=== PATIENT | male | born 1955 | race Caucasian/White ===

== ENCOUNTER 2021-02-20 11:41 | Inpatient (IN) ==
[2021-02-20] MEDS ORDERED: 0.9 % Sodium Chloride 1,000 ML IVC ONE (11:59)
[2021-02-20] MEDS ORDERED: *HR* HYDROmorphone (PF) 1 MG/ML SYRINGE IVP ONE (11:59)
[2021-02-20] MEDS ORDERED: Ondansetron 4 MG/2 ML VIAL IVP ONE (11:59)
[2021-02-20 12:11] LABS: Basophils % 0.2 %; Eosinophils # 0.1 K/mcL (0.0-0.6); Eosinophils % 0.6 %; Hematocrit 39.6 % (37.5-50.1); Hemoglobin 13.5 g/dL (12.9-16.9); Immature Granulocytes % 0.5 % (0-4); Lymphocytes # 2.2 K/mcL (0.6-4.6); Lymphocytes % 14.6 %; Mean Corpuscular HGB Conc 34.1 g/dL (31.6-35.5); Mean Corpuscular Hemoglobin 30.1 pg (28.0-33.3); Mean Corpuscular Volume 88.4 fL (83.0-100.0); Mean Platelet Volume 10.2 fL (9.4-12.4); Monocytes # 1.2 K/mcL (0.0-1.3); Monocytes % 7.7 %; Neutrophils # 11.5 K/mcL (1.6-8.9); Platelet Count 241 K/mcL (140-400); Red Blood Count 4.48 M/mcL (4.19-5.50); Red Cell Distribution Width 13.4 % (11.5-14.5); Segmented Neutrophils % 76.4 %
[2021-02-20 12:32] LABS: Alanine Aminotransferase 34 Units/L (7-52); Albumin 3.9 g/dL (3.5-5.7); Albumin/Globulin Ratio 1.2 (1.1-2.2); Alkaline Phosphatase 59 Units/L (34-104); Aspartate Amino Transferase 34 Units/L (13-39); BUN/Creatinine Ratio 11 (6-26); Bilirubin,Direct 0.3 mg/dL (0.0-0.2); Bilirubin,Indirect 1.3 mg/dL (0.0-1.0); Bilirubin,Total 1.6 mg/dL (0.3-1.0); Blood Urea Nitrogen 11 mg/dL (8-23); Calcium 9.3 mg/dL (8.6-10.3); Carbon Dioxide 29 mEq/L (23-29); Chloride 96 mEq/L (98-107); Globulin 3.2 g/dL (2.4-3.5); Glucose 134 mg/dL (70-105); Lipase 23 Units/L (11-82); Osmolality,Calculated 281 (280-300); Potassium 3.2 mEq/L (3.5-5.1); Sodium 135 mEq/L (136-145); Total Protein 7.1 g/dL (6.4-8.9); Troponin I < 0.03 ng/mL (< 0.04); eGFR For African Americans > 60 (> 60); eGFR For Non-African Americans > 60 (> 60)
[2021-02-20] MEDS ORDERED: Piperacillin/Tazobactam 3.375 GM in 0.9 % Sodium Chloride Mini Bag 100 ML IVPB ONE (13:44)
[2021-02-20] MEDS ORDERED: Lidocaine -MPF 4% 5 ML AMPUL ONE (14:59)
[2021-02-20] MEDS ORDERED: *HR* Magnesium Sulfate 1 GM/2 ML VIAL ONE (15:03)
[2021-02-20] MEDS ORDERED: Ondansetron 4 MG/2 ML VIAL ONE (15:03)
[2021-02-20] MEDS ORDERED: Lidocaine -MPF 2% 2 ML VIAL ONE (15:03)
[2021-02-20] MEDS ORDERED: *HR* Rocuronium Bromide 50 MG/5 ML VIAL ONE (15:03)
[2021-02-20] MEDS ORDERED: Acetaminophen 325 MG TABLET PO PRN (15:06)
[2021-02-20] MEDS ORDERED: Melatonin 3 MG TABLET PO PRN ×2 (15:06→19:12)
[2021-02-20] MEDS ORDERED: Naloxone 0.4 MG/ML INJ IVP PRN ×4 (15:06→19:12)
[2021-02-20] MEDS ORDERED: *HR* HYDROMORPHONE 2 MG/ML VIAL ONE (15:11)
[2021-02-20] MEDS ORDERED: *HR* FentaNYL (PF) 100 MCG/2 ML VIAL ONE (15:11)
[2021-02-20] MEDS ORDERED: Acetaminophen IV 1,000 MG/100 ML BAG IVPB ONE (15:27)
[2021-02-20] MEDS ORDERED: Albuterol 2.5 MG/3 ML NEBULIZER IH PRN ×4 (15:40→19:12)
[2021-02-20] MEDS ORDERED: *HR* HYDROcodone/Acet 5/325 mg TABLET PO PRN (15:41)
[2021-02-20] MEDS ORDERED: Ketorolac 15 MG/ML VIAL IVP PRN (15:41)
[2021-02-20] MEDS ORDERED: 0.9 % Sodium Chloride w KCl 20 MEQ/1,000 ML MLS IVC SCH (15:45)
[2021-02-20] MEDS ORDERED: Ondansetron 4 MG/2 ML VIAL IVP PRN ×2 (15:58→19:12)
[2021-02-20] MEDS ORDERED: *HR* FentaNYL (PF) 100 MCG/2 ML VIAL IVP PRN ×2 (15:58→19:12)
[2021-02-20] MEDS ORDERED: *HR* HYDROmorphone (PF) 1 MG/ML SYRINGE IVP PRN ×2 (15:58→19:12)
[2021-02-20] MEDS ORDERED: Nitroglycerin 0.4 MG TAB.SUBL SL PRN ×2 (15:58→19:12)
[2021-02-20] MEDS ORDERED: EPHEDrine 50 MG/ML VIAL ONE (16:35)
[2021-02-20] MEDS ORDERED: Ketorolac 30 MG/ML VIAL ONE (16:59)
[2021-02-20] MEDS: 0.9 % Sodium Chloride w KCl 20 MEQ/1,000 ML MLS IVC SCH (21:21)
[2021-02-20] MEDS: Ketorolac 15 MG/ML VIAL IVP PRN (22:10)
[2021-02-20] MEDS: Ampicillin/Sulbactam 3,000 MG in 0.9 % Sodium Chloride Mini Bag 100 ML IVPB SCH (23:43)
[2021-02-21] MEDS ORDERED: Ampicillin/Sulbactam 3,000 MG in 0.9 % Sodium Chloride Mini Bag 100 ML IVPB SCH
[2021-02-21 02:00] LABS: Basophils % 0.2 %; Hematocrit 42.3 % (37.5-50.1); Hemoglobin 13.7 g/dL (12.9-16.9); Immature Granulocytes % 0.5 % (0-4); Lymphocytes # 0.7 K/mcL (0.6-4.6); Lymphocytes % 4.1 %; Mean Corpuscular HGB Conc 32.4 g/dL (31.6-35.5); Mean Corpuscular Volume 89.6 fL (83.0-100.0); Mean Platelet Volume 10.5 fL (9.4-12.4); Monocytes % 6.3 %; Neutrophils # 14.3 K/mcL (1.6-8.9); Platelet Count 225 K/mcL (140-400); Red Blood Count 4.72 M/mcL (4.19-5.50); Red Cell Distribution Width 13.3 % (11.5-14.5); Segmented Neutrophils % 88.9 %; White Blood Count 16.1 K/mcL (4.3-11.1)
[2021-02-21 02:20] LABS: BUN/Creatinine Ratio 13 (6-26); Blood Urea Nitrogen 17 mg/dL (8-23); Calcium 8.7 mg/dL (8.6-10.3); Carbon Dioxide 25 mEq/L (23-29); Chloride 97 mEq/L (98-107); Glucose 214 mg/dL (70-105); Osmolality,Calculated 282 (280-300); Potassium 3.6 mEq/L (3.5-5.1); Sodium 132 mEq/L (136-145); eGFR For African Americans > 60 (> 60); eGFR For Non-African Americans 53 (> 60)
[2021-02-21] MEDS: Ampicillin/Sulbactam 3,000 MG in 0.9 % Sodium Chloride Mini Bag 100 ML IVPB SCH ×4 (05:07→23:57)
[2021-02-21] MEDS: *HR* Heparin 5,000 UNIT/ML VIAL SQ SCH ×3 (05:09→22:08)
[2021-02-21 05:22] LABS: Bacteria,Urine Few per hpf (None-Few); Bilirubin,Urine Negative (Negative); Blood,Urine Negative (Negative); Clarity,Urine Clear (Clear); Color,Urine Light-Orange (Yellow); Glucose,Urine (UA) Normal (Normal); Ketones,Urine Negative (Negative); Leukocyte Esterase,Urine Negative (Negative); Mucus,Urine Few per lpf (None-Few); Nitrite,Urine Negative (Negative); Protein,Urine 30 mg/dL (Neg-Trace); RBC,Urine 0-3 per hpf (0-3); Specific Gravity,Urine 1.028 (1.010-1.025); Urobilinogen,Urine Normal (Normal); WBC,Urine 0-3 per hpf (0-3)
[2021-02-21] MEDS ORDERED: *HR* Heparin 5,000 UNIT/ML VIAL SQ SCH (06:00)
[2021-02-21] MEDS: *HR* HYDROcodone/Acet 5/325 mg TABLET PO PRN (09:58)
[2021-02-21] MEDS: 0.9 % Sodium Chloride w KCl 20 MEQ/1,000 ML MLS IVC SCH (09:58)
[2021-02-21] MEDS: Budesonide/Formoterol 160/4.5 1 PUFF INH IH SCH (20:07)
[2021-02-21] MEDS: Metoprolol XL (24 HR) Succ 25 MG TAB.ER.24H PO SCH (22:08)
[2021-02-21] MEDS: Acetaminophen 325 MG TABLET PO PRN (22:27)
[2021-02-22 01:27] LABS: Basophils % 0.1 %; Eosinophils % 0.1 %; Hematocrit 37.4 % (37.5-50.1); Immature Granulocytes % 0.6 % (0-4); Lymphocytes # 1.2 K/mcL (0.6-4.6); Lymphocytes % 8.9 %; Mean Corpuscular HGB Conc 32.4 g/dL (31.6-35.5); Mean Corpuscular Hemoglobin 29.4 pg (28.0-33.3); Mean Corpuscular Volume 90.8 fL (83.0-100.0); Mean Platelet Volume 10.8 fL (9.4-12.4); Monocytes # 1.3 K/mcL (0.0-1.3); Monocytes % 9.2 %; Neutrophils # 11.2 K/mcL (1.6-8.9); Platelet Count 280 K/mcL (140-400); Red Blood Count 4.12 M/mcL (4.19-5.50); Red Cell Distribution Width 13.5 % (11.5-14.5); Segmented Neutrophils % 81.1 %; White Blood Count 13.9 K/mcL (4.3-11.1)
[2021-02-22 01:28] LABS: Hemoglobin 12.1 g/dL (12.9-16.9)
[2021-02-22 01:46] LABS: BUN/Creatinine Ratio 20 (6-26); Blood Urea Nitrogen 20 mg/dL (8-23); Calcium 8.4 mg/dL (8.6-10.3); Carbon Dioxide 25 mEq/L (23-29); Chloride 98 mEq/L (98-107); Glucose 181 mg/dL (70-105); Osmolality,Calculated 281 (280-300); Potassium 3.4 mEq/L (3.5-5.1); Sodium 132 mEq/L (136-145); eGFR For African Americans > 60 (> 60); eGFR For Non-African Americans > 60 (> 60)
[2021-02-22] MEDS: Ampicillin/Sulbactam 3,000 MG in 0.9 % Sodium Chloride Mini Bag 100 ML IVPB SCH ×4 (06:31→23:30)
[2021-02-22] MEDS: *HR* Heparin 5,000 UNIT/ML VIAL SQ SCH ×3 (06:31→18:17)
[2021-02-22] MEDS: Budesonide/Formoterol 160/4.5 1 PUFF INH IH SCH ×2 (07:37→23:10)
[2021-02-22] MEDS: Aspirin Enteric Coated 81 MG Tablet PO SCH (10:05)
[2021-02-22] MEDS: Metoprolol XL (24 HR) Succ 25 MG TAB.ER.24H PO SCH ×2 (10:05→20:23)
[2021-02-22] MEDS: Ketorolac 15 MG/ML VIAL IVP PRN (10:10)
[2021-02-22] MEDS ORDERED: Ipratropium/Albuterol Neb 3 ML IH PRN (16:37)
[2021-02-22] MEDS: Baclofen 10 MG TABLET PO PRN (18:17)
[2021-02-22] MEDS: *HR* HYDROcodone/Acet 5/325 mg TABLET PO PRN (20:28)
[2021-02-23 02:19] LABS: Basophils % 0.3 %; Eosinophils # 0.3 K/mcL (0.0-0.6); Eosinophils % 2.2 %; Hematocrit 36.8 % (37.5-50.1); Hemoglobin 11.9 g/dL (12.9-16.9); Immature Granulocytes % 0.6 % (0-4); Lymphocytes # 1.7 K/mcL (0.6-4.6); Lymphocytes % 14.7 %; Mean Corpuscular HGB Conc 32.3 g/dL (31.6-35.5); Mean Corpuscular Hemoglobin 29.3 pg (28.0-33.3); Mean Corpuscular Volume 90.6 fL (83.0-100.0); Mean Platelet Volume 10.4 fL (9.4-12.4); Monocytes # 1.3 K/mcL (0.0-1.3); Monocytes % 11.1 %; Neutrophils # 8.3 K/mcL (1.6-8.9); Platelet Count 300 K/mcL (140-400); Red Blood Count 4.06 M/mcL (4.19-5.50); Red Cell Distribution Width 13.6 % (11.5-14.5); Segmented Neutrophils % 71.1 %; White Blood Count 11.7 K/mcL (4.3-11.1)
[2021-02-23 03:54] LABS: BUN/Creatinine Ratio 17 (6-26); Blood Urea Nitrogen 16 mg/dL (8-23); Calcium 8.4 mg/dL (8.6-10.3); Carbon Dioxide 29 mEq/L (23-29); Chloride 100 mEq/L (98-107); Glucose 126 mg/dL (70-105); Magnesium 1.8 mg/dL (1.6-2.6); Osmolality,Calculated 285 (280-300); Potassium 3.6 mEq/L (3.5-5.1); Sodium 136 mEq/L (136-145); eGFR For African Americans > 60 (> 60); eGFR For Non-African Americans > 60 (> 60)
[2021-02-23] MEDS: *HR* Heparin 5,000 UNIT/ML VIAL SQ SCH (05:24)
[2021-02-23] MEDS: Ampicillin/Sulbactam 3,000 MG in 0.9 % Sodium Chloride Mini Bag 100 ML IVPB SCH (05:25)
[2021-02-23] MEDS: *HR* HYDROcodone/Acet 5/325 mg TABLET PO PRN (05:25)
[2021-02-23 07:05] VITALS: PULSE 67
[2021-02-23] MEDS: Budesonide/Formoterol 160/4.5 1 PUFF INH IH SCH (07:56)
[2021-02-23] MEDS: Acetaminophen 325 MG TABLET PO PRN (10:45)
[2021-02-23] MEDS: Aspirin Enteric Coated 81 MG Tablet PO SCH (10:45)
[2021-02-23] MEDS: Baclofen 10 MG TABLET PO PRN (10:45)
[2021-02-23] MEDS: Metoprolol XL (24 HR) Succ 25 MG TAB.ER.24H PO SCH (10:46)
[2021-02-23 12:11] VITALS: BP 128/71; TEMP 97.6; O2SAT 93
== END 2021-02-23 12:33 | disposition home or self-care (01) | DRG 417 ==
LOC: EMEROOARM 11:41 → 3NENU 11:41 → 3BNU 22:02 → SUATTDRO 02-21 13:40
PROVIDERS: ADMIT Internal Medicine; ATTEND Pharmacist